=== PATIENT | male | born 1945 | race Caucasian/White ===

== ENCOUNTER 2017-08-30 12:30 | Inpatient (IN) ==
--- NOTE | 2017-08-30 12:40 | Emergency Department Report ---
Weakness HPI - General Stated complaint: weakness Time Seen by Provider: 08/30/17 12:40 - Related Data Home Medications Medication Instructions Recorded Confirmed Calcium Carbonate 650 mg PO BID #0 01/20/12 08/11/17 Cholecalciferol (Vitamin D) 3,000 unit PO DAILY #0 01/20/12 08/11/17 [place] Carbonate 600 mg PO HS #0 01/20/12 08/11/17 Multivitamins (Multivitamin) 1 tab PO DAILY #0 01/20/12 08/11/17 Quetiapine Fumarate 200 mg PO HS #0 01/20/12 08/11/17 Sennosides [Senokot] 2 tab PO BID #0 01/20/12 08/11/17 Trazodone HCl 150 mg PO HS #0 01/20/12 08/11/17 Ziprasidone HCl [Geodon] 40 mg PO BID #0 01/20/12 08/11/17 Fish Oil/[place]-3 Fatty Acids (Fish 4 cap PO DAILY #0 12/15/16 08/11/17 Oil 1,000 Mg Capsule) Previous Rx's Medication Instructions Recorded Norvasc (amlodipine) 10 mg tablet 10 mg PO DAILY #90 tab 03/19/17 hydrochlorothiazide 25 mg tablet 25 mg PO DAILY #30 tab 07/08/17 Allergies Allergy/AdvReac Type Severity Reaction Status Date / Time Penicillins Allergy Severe ANAPHYLACTIC Verified 02/10/17 14:46 SHOCK oxycodone Allergy Unknown STROKE Verified 02/10/17 14:46 Sulfa (Sulfonamide Allergy Unknown Verified 02/10/17 14:46 Antibiotics) Tetanus Toxoid,Fluid Allergy Unknown Uncoded 02/10/17 14:46 [facility] Medical History Migraine headache (Chronic Medical) Peripheral artery disease (Chronic Medical) Surgical History: stent in leg 2003. lung fluid removal x3 2007. r ankle fracture repair x 3 2009. stent in left groin area 1999 for peripheral artery disease. lung sugery x 3 Family History: Family History Father Stroke Mother Stroke Hypertension Diabetes mellitus Disposition Prescriptions: No Action Calcium Carbonate 650 mg PO BID #0 Ziprasidone HCl [Geodon] 40 mg PO BID #0 [place] Carbonate 600 mg PO HS #0 Sennosides [Senokot] 2 tab PO BID #0 Cholecalciferol (Vitamin D) 3,000 unit PO DAILY #0 Multivitamins (Multivitamin) 1 tab PO DAILY #0 Quetiapine Fumarate 200 mg PO HS #0 Trazodone HCl 150 mg PO HS #0 Fish Oil/[place]-3 Fatty Acids (Fish Oil 1,000 Mg Capsule) 4 cap PO DAILY #0 Norvasc (amlodipine) 10 mg tablet 10 mg PO DAILY #90 tab hydrochlorothiazide 25 mg tablet 25 mg PO DAILY #30 tab Referrals: Ernst Pinto MD [Primary Care Provider] -
--- OUTSIDE RECORDS SUMMARY | 2017-08-30 12:47 | External Medical Summary | Continuity of Care Document ---
:[address] [facility] Allergies Active Description Code Type Severity Reaction Onset Reported/ Identified Relationship Clinical to Patient Status Yes oxyCODONE NKMA N/A N/A 11/01/2013 Yes penicillin NKMA Medium unknown 11/01/2013 Yes sulfamethoxa NKMA Medium unknown 11/01/2013 zole Yes tetanus NKMA N/A N/A 08/29/2015 toxoid Medications Medication Packaging Start Date Stop Date Route Dosage Sig 05/14/2017 phenol See topical([place] [facility] [place] [facility], Apply Colorless 2x a day topical liquid) to area., 30 mL, 0 Refill(s) Problems Date Dx Attending Type Code Diagnosis Diagnosed By Coded 11/21/2015 Bj Cordoba Final L84 Corns and callosities 11/21/2015 Bj Cordoba Final M20.41 Other hammer toe(s) (acquired), right foot 11/21/2015 Bj Cordoba Final M21.6X1 Other acquired deformities of right foot 12/19/2015 Bj Cordoba Final 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 12/19/2015 Bj Cordoba Final M20.41 Other hammer toe(s) (acquired), right foot 01/16/2016 Bj Cordoba Final 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 01/16/2016 Bj Cordoba Final M20.41 Other hammer toe(s) (acquired), right foot 01/16/2016 Bj Cordoba Final B35.1 Tinea unguium 02/13/2016 Bj Cordoba Final 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 02/13/2016 Bj Cordoba Final M20.41 Other hammer toe(s) (acquired), right foot 02/13/2016 Bj Cordoba Final M21.6X1 Other acquired deformities of right foot 03/19/2016 Bj Cordoba Final 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 04/23/2016 Bj Cordoba Final 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 05/25/2016 Bj Cordoba Final 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 06/15/2016 Bj Cordoba Final M20.41 Other hammer toe(s) (acquired), right foot 06/15/2016 Bj Cordoba Final M21.6X1 Other acquired deformities of right foot 07/20/2016 Bj Cordoba Final 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 07/20/2016 Bj Cordoba Final M20.41 Other hammer toe(s) (acquired), right foot 07/20/2016 Bj Cordoba Final M21.6X1 Other acquired deformities of right foot 07/20/2016 Bj Cordoba Final B35.1 Tinea unguium 07/20/2016 Bj Cordoba Final R26.2 Difficulty in walking, not elsewhere classified 05/14/2017 Bj Cordoba Final M79.674 Pain in right toe(s) 05/14/2017 Bj Cordoba Final L60.3 Nail dystrophy 05/14/2017 Bj Cordoba Final L84 Corns and callosities Procedures Code Description [place] [address] Paring or 11/21/2015 cutting of benign hyperkeratotic lesion (eg, corn or callus); 2 to 4 lesions 35262 Office or 11/21/2015 other outpatient visit for the evaluation and management of an established patient, which requires at least 2 of these 3 celis components: An expanded problem focused history; An expanded prob 75316 Paring or 12/19/2015 cutting of benign hyperkeratotic lesion (eg, corn or callus); 2 to 4 lesions 13857 Office or 12/19/2015 other outpatient visit for the evaluation and management of an established patient, which requires at least 2 of these 3 celis components: An expanded problem focused history; An expanded prob 36824 Paring or 01/16/2016 cutting of benign hyperkeratotic lesion (eg, corn or callus); 2 to 4 lesions 97084 Debridement of 01/16/2016 nail(s) by any method(s); 6 or more 06221 Office or 01/16/2016 other outpatient visit for the evaluation and management of an established patient, which requires at least 2 of these 3 celis components: An expanded problem focused history; An expanded prob 73438 Paring or 02/13/2016 cutting of benign hyperkeratotic lesion (eg, corn or callus); 2 to 4 lesions 08484 Office or 02/13/2016 other outpatient visit for the evaluation and management of an established patient, which requires at least 2 of these 3 celis components: An expanded problem focused history; An expanded prob 40630 Paring or 03/19/2016 cutting of benign hyperkeratotic lesion (eg, corn or callus); 2 to 4 lesions 75779 Paring or 04/23/2016 cutting of benign hyperkeratotic lesion (eg, corn or callus); 2 to 4 lesions 28962 Office or 06/15/2016 other outpatient visit for the evaluation and management of an established patient, which requires at least 2 of these 3 celis components: An expanded problem focused history; An expanded prob 63016 Paring or 07/20/2016 cutting of benign hyperkeratotic lesion (eg, corn or callus); 2 to 4 lesions 72529 Debridement of 07/20/2016 nail(s) by any method(s); 6 or more 91160 Excision of 05/14/2017 nail and nail matrix, partial or complete (eg, ingrown or deformed nail), for permanent removal; 62399 Office or 05/14/2017 other outpatient visit for the evaluation and management of an established patient, which requires at least 2 of these 3 celis components: An expanded problem focused history; An expanded prob Results There is no data. Encounters ACCT No. Visit Discharge Status Pt. Type Provider Facility Loc./Unit Complaint Date/Time [id number] 02/09/2012 02/09/2012 CLS Outpatient Raul Olivera MDOPRA 55 14:55:00 23:59:59 [facility] [id number] 09/25/2013 09/25/2013 CLS Outpatient 15:00:00 23:59:59 [id number] 05/14/2017 05/14/2017 DIS Outpatient Adalid [facility] NPC RT 48 14:14:00 23:59:00 [facility] REMOVAL OF TOENAILS [id number] 07/20/2016 07/20/2016 DIS Outpatient Adalid, [facility] Callus 50 10:21:00 23:59:00 [facility] [id number] 06/15/2016 06/15/2016 DIS Outpatient Adalid, [facility] LAWRENCE RENEE 83 10:11:00 23:59:00 Bjrenny Basilio CALLOUS Clinic [id number] 04/23/2016 04/23/2016 DIS Outpatient Adalid, [facility] rck renee 95 10:24:00 23:59:00 Bjrenny Avilai feet Clinic callus [id number] 03/19/2016 03/19/2016 DIS Outpatient Adalid, [facility] Bilateral 35 09:58:00 [facility]59[facility] [id number] 02/13/2016 02/13/2016 DIS Outpatient Adalid, [facility] TCPA 30 09:36:00 23:59:00 Bj Basilio follow up Clinic callus [id number] 01/16/2016 01/16/2016 DIS Outpatient Adalid, [facility] Bilateral 88 08:41:00 23:59:00 Bjrenny Basilio feet Clinic callus recheck [id number] 12/19/2015 12/19/2015 DIS Outpatient Adalid, [facility] follow up 00 10:16:00 23:59:00 Bj Chetna bilateral Clinic feet lesions [id number] 11/21/2015 11/21/2015 DIS Outpatient Adalid, [facility] Callus 70 10:29:00 23:59:00 Bj Avilai Clinic [id number] 10/24/2015 10/24/2015 DIS Outpatient Adalid, [facility] Calllus 68 08:04:00 23:59:00 Bj [facility] Clinic [id number] 08/29/2015 08/29/2015 DIS Outpatient Adalid, [facility] callus 27 08:01:00 23:59:00 Bjrenny Avilai removal rt Clinic foot [id number] 05/25/2014 05/25/2014 DIS Outpatient Adalid, [facility] E21 Po NAIL TRIM 10 14:58:00 23:59:00 Bj Basilio Clinic [id number] 05/15/2017 Document 1727 05:17:27 Registrati on [id number] 10/01/2014 Document 50 14:13:00 Registrati on
--- OUTSIDE RECORDS SUMMARY | 2017-08-30 12:47 | External Medical Summary | Referral Summary ---
:1945 Author Organization [facility] Address [address] [place] [address] Care Team Providers Name Role Phone Ernst Pinto Primary Care Physician Encounter VC Date(s): 10/24/15 - 10/24/15 [facility] [address] [place] [address]- [place] Discharge Diagnosis: Acquired hammer toes of both feet Discharge Diagnosis: Pre-ulcerative calluses Discharge Disposition: 01-Home or Self Care Attending Physician: Bj Cordoba DPM Admitting Physician: Bj Cordoba DPM Referring Physician: Bj Cordoba DPM Vital Signs No data available for this section Problem List Condition Effective Dates Status Health Status Informant Alcoholism(Confirmed) Active ALLERGIES(Confirmed) Resolved Bipolar 1 disorder(Confirmed) Active DEPRESSION(Confirmed) Resolved HYPERTENSION(Confirmed) Resolved Seizures(Confirmed) Active Chicken pox(Confirmed) Active Allergies, Adverse Reactions, Alerts Substance Reaction Severity Status oxyCODONE Active penicillin unknown Medium Active sulfamethoxazole unknown Medium Active tetanus toxoid Active Medications amLODIPine Oral, Daily, 0 Refill(s) Start Date: 02/05/14 Status: OrderedAricept Oral, Bedtime (once a day), 0 Refill(s) Start Date: 02/05/14 Status: Orderedaspirin 0 Refill(s) Start Date: 02/05/14 Status: OrderedCalcium 600+D tabs, Oral, TID, 0 Refill(s) Start Date: 02/05/14 Status: OrderedCastellani [place] Colorless 0 Refill(s) Start Date: 02/05/14 Status: OrderedFish Oil Oral, 0 Refill(s) Start Date: 02/05/14 Status: OrderedGeodon 0 Refill(s) Start Date: 02/05/14 Status: Orderedhydrochlorothiazide Oral, Daily, 0 Refill(s) Start Date: 02/05/14 Status: OrderedIron-150 tabs, Oral, Daily, 0 Refill(s) Start Date: 02/05/14 Status: Orderedlithium carbonate Oral, TID, 0 Refill(s) Start Date: 02/05/14 Status: Orderedmultivitamin Daily, 0 Refill(s) Start Date: 02/05/14 Status: Orderedprazosin Oral, TID, 0 Refill(s) Start Date: 02/05/14 Status: OrderedSenokot S tabs, Oral, Bedtime (once a day), 0 Refill(s) Start Date: 02/05/14 Status: OrderedSEROquel Oral, 0 Refill(s) Start Date: 02/05/14 Status: OrderedtraZODone Oral, 0 Refill(s) Start Date: 02/05/14 Status: Ordered Results No data available for this section Immunizations Vaccine Date Refusal Reason influenza virus vaccine, inactivated 04/18/09 Procedures Procedure Date Related Diagnosis Body Site Paring or cutting of benign hyperkeratotic lesion 10/24/15 (eg, corn or callus); 2 to 4 lesions Appendectomy Arthrodesis of ankle (R), bone graft (R) Iliac Excision-partial med Malleolus (R) Ankle Incision AND drainage-Implant removal (R) Ankle Repair-(R) Ankle, remove implants Social History Social History Type Response Smoking Status Former smoker; Type: Cigarettes Assessment and Plan Extracted from: Title: Ambulatory Patient Education Author: Bj Cordoba DPM Date: 10/24/15 Musculoskeletal Hammer Toes Hammer toes is a condition in which one or more of your toes is permanently flexed. CAUSES This happens when a muscle imbalance or abnormal bone length makes your small toes buckle. This causes the toe joint to contract and the strong cord-like bands that attach muscles to the bones (tendons) in your toes to shorten. SIGNS AND SYMPTOMS Common symptoms of flexible hammer toes include: A buildup of skin cells (corns). Corns occur where beata bumps come in frequent contact with hard surfaces. For example, where your shoes press and rub. Irritation. Inflammation. Pain. Limited motion in your toes. DIAGNOSIS Hammer toes are diagnosed through a physical exam of your toes. During the exam , your health care provider may try to reproduce your symptoms by manipulating your foot. Often, X-ray exams are done to de termine the degree of deformity and to make sure that the cause is not a fracture. TREATMENT Hammer toes can be treated with corrective surgery. There are several types of surgical procedures that can treat hammer toes. The most common procedures include: ArthroplastyA portion of the joint is surgically removed and your toe is straightened. The gap fills in with fibrous tissue. This procedure helps treat pain and deformity and helps restore function. FusionCartilage between the two bones of the affected joint is taken out and the bones fuse together into one longer bone. This helps keep your toe stable and reduces pain but leaves your toe stiff, yet straight. ImplantationA portion of your bone is removed and replaced with an implant to restore motion. Flexor tendon transfersThis procedure repositions the tendons that curl the toes down (flexor tendons). This may be done to release the deforming force that causes your toe to buckle. Several of these procedures require fixing your toe with a pin that is visible at the tip of your toe. The pin keeps the toe straight during healing. Your health care provider will remove the pin usually within 48 weeks after the procedure. This information is not intended to replace advice given to you by your health care provider. Make sure you discuss any questions you have with your health care provider. Document Released: 06/18/2001 Document Revised: 06/26/2014 Document Reviewed: 02/26/2014 [facility] Patient Information 2015 [employer] [facility]. No follow up information was provided. Extracted from: Title: Office Visit Note Author: Bj Cordoba DPFaith Date: 10/24/15 Assessment/Plan Acquired hammer toes of both feet Stable. Pre-ulcerative calluses Paring of hyperkeratotic lesiontimes 4 bilateral feet wasperformed via #15 blade. No underlying ulceration noted. Follow upin one month.
--- OUTSIDE RECORDS SUMMARY | 2017-08-30 12:47 | External Medical Summary | Referral Summary ---
:1945 Author Organization [facility] Address [address] [place] [address] Care Team Providers Name Role Phone Ernst Pinto Primary Care Physician Encounter VC Date(s): 01/16/16 - 01/16/16 [facility] [address] [place] [address]- [place] Discharge Diagnosis: Acquired plantar porokeratosis Discharge Diagnosis: Acquired hammer toes of both feet Discharge Diagnosis: Pain due to onychomycosis of nail Discharge Disposition: 01-Home or Self Care Attending Physician: Bj Cordoba DPM Admitting Physician: Bj Cordoba DPM Vital Signs No data available for this section Problem List Condition Effective Dates Status Health Status Informant Acquired plantar Active porokeratosis(Confirmed) Alcoholism(Confirmed) Active ALLERGIES(Confirmed) Resolved Bipolar 1 disorder(Confirmed) [...] 0 Refill(s) Start Date: 02/05/14 Status: OrderedCastellani [place] Colorless 0 Refill(s) Start Date: 02/05/14 Status: [...] Procedures Procedure Date Related Diagnosis Body Site Debridement of nail(s) by any method(s); or 01/16/16 more Paring or cutting of benign hyperkeratotic lesion 01/16/16 (eg, corn or callus); 2 to 4 lesions Appendectomy Arthrodesis of ankle (R), bone graft (R) Iliac Excision-partial med Malleolus (R) Ankle Incision AND drainage-Implant removal (R) Ankle Repair-(R) Ankle, remove implants Social History Social History Type Response Smoking Status Former smoker; Type: Cigarettes Assessment and Plan Extracted from: Title: Ambulatory Patient Education Author: Bj Cordoba DPM Date: 01/16/16 Musculoskeletal Hammer Toes Hammer toes is a [...] 06/18/2001 Document Revised: 06/26/2014 Document Reviewed: 02/26/2014 [employer] Patient Information 2016 [employer] [facility]. No follow up information was provided. Extracted from: Title: Office Visit Note Author: Bj Cordoba DPM Date: 01/16/16 Assessment/Plan 1.Acquired plantar porokeratosis Paring of hyperkeratotic lesiontimes 4 of bilateral feet; right hallux, medial right arch, plantar right heel, and plantar left fifth metatarsal head wasperformed via #15 blade. No underlying ulceration noted. Follow upin one month. 2.Acquired hammer toes of both feet Stable. 3.Pain due to onychomycosis of nail ABN and consent forms were signed by the patient. Debridement of toenails,total of 10 was performed viamanual and mechanical means without any incidence. Follow up if condition worsens.
--- OUTSIDE RECORDS SUMMARY | 2017-08-30 12:47 | External Medical Summary | Referral Summary ---
:1945 Author Organization [facility] Address [address] [place] [address] Care Team Providers Name Role Phone Ernst Pinto Primary Care Physician Encounter VC Date(s): 02/13/16 - 02/13/16 [facility] [address] [place] [address] [place] Discharge Diagnosis: Acquired plantar porokeratosis Discharge Diagnosis: Pronation deformity of both feet Discharge Diagnosis: Acquired hammer toes of both feet Discharge Disposition: 01-Home or Self Care Attending [...] Daily, 0 Refill(s) Start Date: 02/05/14 Status: Orderedaspirin 0 Refill(s) Start Date: 02/05/14 Status: OrderedCalcium 600+D tabs, Oral, TID, 0 Refill(s) Start Date: 02/05/14 Status: OrderedCastellani [place] Colorless 0 Refill(s) Start Date: 02/05/14 Status: [...] Paring or cutting of benign hyperkeratotic lesion 02/13/16 (eg, corn or callus); 2 to 4 lesions Appendectomy Arthrodesis of ankle (R), bone graft (R) Iliac Excision-partial med Malleolus (R) Ankle Incision AND drainage-Implant removal (R) Ankle Repair-(R) Ankle, remove implants Social History Social History Type Response Smoking Status Former smoker; Type: Cigarettes Assessment and Plan Extracted from: Title: Office Visit Note Author: Bj Cordoba DPM Date: 02/13/16 Assessment/Plan 1.Acquired plantar porokeratosis Paring of hyperkeratotic lesiontimes4 bilateral feet; right hallux, medial arch right foot, plantar right heel, and plantar fifth metatarsal head left footperformed via #15 blade. No underlying ulceration noted. Patient was given callus pad today. Follow up in 5 weeks. 2.Acquired hammer toes of both feet Consideration is given to surgical intervention if condition worsens. 3.Pronation deformity of both feet Stable.
--- OUTSIDE RECORDS SUMMARY | 2017-08-30 12:47 | External Medical Summary | Referral Summary ---
:1945 Author Organization [facility] Address [address] [place] [address] Care Team Providers Name Role Phone Ernst Pinto Primary Care Physician Encounter VC Date(s): 03/19/16 - 03/19/16 [facility] [address] [place] [address]- [place] Discharge Diagnosis: Acquired plantar porokeratosis Discharge Disposition: 01-Home or Self Care Attending [...] 0 Refill(s) Start Date: 02/05/14 Status: OrderedCastellani [place] Colorless 0 Refill(s) Start Date: 02/05/14 Status: [...] Paring or cutting of benign hyperkeratotic lesion 03/19/16 (eg, corn or callus); 2 to 4 lesions Appendectomy Arthrodesis of ankle (R), bone graft (R) Iliac Excision-partial med Malleolus (R) Ankle Incision AND drainage-Implant removal (R) Ankle Repair-(R) Ankle, remove implants Social History Social History Type Response Smoking Status Former smoker; Type: Cigarettes Assessment and Plan Extracted from: Title: Office Visit Note Author: Bj Cordoba DPM Date: 03/19/16 Assessment/Plan 1.Acquired plantar porokeratosis Paring of hyperkeratotic lesiontimes4 bilateral feet; plantar right hallux ,plantar medial arch, plantar right heel,andfifth metatarsal head left footperformed via #15 blade. No underlying ulceration noted. Follow up in 5 weeks.
--- OUTSIDE RECORDS SUMMARY | 2017-08-30 12:47 | External Medical Summary | Referral Summary ---
:1945 Author Organization [facility] Address [address] [place] [address] Care Team Providers Name Role Phone Ernst Pinto Primary Care Physician Encounter VC Date(s): 06/15/16 - 06/15/16 [facility] [address] [place] [address]- [place] Discharge Diagnosis: Pronation deformity of both feet Discharge Diagnosis: Acquired plantar porokeratosis Discharge Diagnosis: [...] 0 Refill(s) Start Date: 02/05/14 Status: OrderedCastellani [place] Colorless 0 Refill(s) Start Date: 02/05/14 Status: [...] No data available for this section Immunizations Given and Recorded Vaccine Date Status Refusal Reason influenza virus vaccine, inactivated 04/18/09 Recorded Procedures Procedure Date Related Diagnosis Body Site Appendectomy Arthrodesis of ankle (R), bone graft (R) Iliac Excision-partial med Malleolus (R) Ankle Incision AND drainage-Implant removal (R) Ankle Repair-(R) Ankle, remove implants Social History Social History Type Response Smoking Status Former smoker; Type: Cigarettes Assessment and Plan Extracted from: Title: Office Visit Note Author: Bj Cordoba DPM Date: 06/15/16 Assessment/Plan 1.Pronation deformity of both feet Stable. 2.Acquired plantar porokeratosis Paring of hyperkeratotic lesiontimes 4 of bilateral feetwasperformed via #15 blade. No underlying ulceration noted. Follow up if condition worsens. 3.Acquired hammer toes of both feet Stable.
--- OUTSIDE RECORDS SUMMARY | 2017-08-30 12:47 | External Medical Summary | Referral Summary ---
:1945 Author Organization [facility] Address [address] [place] [address] Care Team Providers Name Role Phone Ernst Pinto Primary Care Physician Encounter VC Date(s): 07/20/16 - 07/20/16 [facility] [address] [place] [address]- [place] Discharge Diagnosis: Pain due to onychomycosis of nail Discharge Diagnosis: Difficulty walking Discharge Diagnosis: Pronation deformity of both feet [...] Resolved Bipolar 1 disorder(Confirmed) Active DEPRESSION(Confirmed) Resolved Difficulty walking(Confirmed) Active HYPERTENSION(Confirmed) Resolved Seizures(Confirmed) Active Chicken pox(Confirmed) Active Allergies, Adverse Reactions, Alerts Substance Reaction Severity Status oxyCODONE Active penicillin unknown Medium Active sulfamethoxazole unknown Medium Active tetanus toxoid Active Medications amLODIPine Oral, Daily, 0 Refill(s) Start Date: 02/05/14 Status: Orderedaspirin 0 Refill(s) Start Date: 02/05/14 Status: OrderedCalcium 600+D tabs, Oral, TID, 0 Refill(s) Start Date: 02/05/14 Status: OrderedCastellani [place] Colorless 0 Refill(s) Start Date: 02/05/14 Status: [...] Site Debridement of nail(s) by any method(s); 6 or 07/20/16 more Paring or cutting of benign hyperkeratotic lesion 07/20/16 (eg, corn or callus); 2 to 4 lesions Appendectomy Arthrodesis of ankle (R), bone graft (R) Iliac Excision-partial med Malleolus (R) Ankle Incision AND drainage-Implant removal (R) Ankle Repair-(R) Ankle, remove implants Social History Social History Type Response Smoking Status Former smoker; Type: Cigarettes Assessment and Plan Extracted from: Title: Office Visit Note Author: Bj Cordoba DPM Date: 07/20/16 Assessment/Plan 1.Pain due to onychomycosis of nail 2.Difficulty walking ABN and consent forms were signed by the patient. Debridement of toenails,total of 10 was performed viamanual and mechanical means without any incidence. Follow up if condition worsens. 3.Acquired plantar porokeratosis Paring of hyperkeratotic lesiontimes f4 of bilateral feet; plantar medial right halluxof rightfoot, medial archof right foot,plantarright heel, andplantar fifth metatarsal head left foot wasperformed via #15 blade. No underlying ulceration noted. Follow up if condition worsens. 4.Acquired hammer toes of both feet Stable. 5.Pronation deformity of both feet Stable.
--- OUTSIDE RECORDS SUMMARY | 2017-08-30 12:47 | External Medical Summary | Referral Summary ---
:1945 Author Organization [facility] Address [address] [place] [address] Care Team Providers Name Role Phone Ernst Pinto Primary Care Physician Encounter VC Date(s): 11/21/15 - 11/21/15 [facility] [address] [place] [address]- [place] Discharge Diagnosis: Acquired hammer toes of both feet Discharge Diagnosis: Pre-ulcerative calluses Discharge Diagnosis: Pronation deformity of both feet Discharge Disposition: 01-Home or [...] 0 Refill(s) Start Date: 02/05/14 Status: OrderedCastellani [place] Colorless 0 Refill(s) Start Date: 02/05/14 Status: [...] Paring or cutting of benign hyperkeratotic lesion 11/21/15 (eg, corn or callus); 2 to 4 lesions Appendectomy Arthrodesis of ankle (R), bone graft (R) Iliac Excision-partial med Malleolus (R) Ankle Incision AND drainage-Implant removal (R) Ankle Repair-(R) Ankle, remove implants Social History Social History Type Response Smoking Status Former smoker; Type: Cigarettes Assessment and Plan Extracted from: Title: Office Visit Note Author: Bj Cordoba DPFaith Date: 11/21/15 Assessment/Plan 1.Pronation deformity of both feet Recommended anti-pronation inserts from [employer]. 2.Acquired hammer toes of both feet Stable. 3.Pre-ulcerative calluses Paring of hyperkeratotic lesiontimes4; right hallux, plantar medial arch, and plantar right heelandplantar fifth metatarsal headwasperformed via #15 blade. No underlying ulceration noted. Follow up in 1 month.
--- OUTSIDE RECORDS SUMMARY | 2017-08-30 12:47 | External Medical Summary | Referral Summary ---
:1945 Author Organization [facility] Address [address] [place] [address] Care Team Providers Name Role Phone Ernst Pinto Primary Care Physician Encounter VC Date(s): 08/29/15 - 08/29/15 [facility] [address] [place] [address] [place] Discharge Diagnosis: Pre-ulcerative calluses Discharge Diagnosis: Pain due to onychomycosis of [...] 0 Refill(s) Start Date: 02/05/14 Status: OrderedCastellani [place] Colorless 0 Refill(s) Start Date: 02/05/14 Status: [...] Paring or cutting of benign hyperkeratotic lesion 08/29/15 (eg, corn or callus); 2 to 4 lesions Appendectomy Arthrodesis of ankle (R), bone graft (R) Iliac Excision-partial med Malleolus (R) Ankle Incision AND drainage-Implant removal (R) Ankle Repair-(R) Ankle, remove implants Social History Social History Type Response Smoking Status Former smoker; Type: Cigarettes Assessment and Plan Extracted from: Title: Office Visit Note Author: Bj Cordoba DPFaith Date: 08/29/15 Assessment/Plan Pain due to onychomycosis of nail Patient goes to a differentplace for toenail care. Pre-ulcerative calluses Paring of hyperkeratotic lesiontimes 3 of plantar right foot and 1 ofplantar left foot wasperformed via #15 blade. No underlying ulceration noted. Follow up in 2 months
--- OUTSIDE RECORDS SUMMARY | 2017-08-30 12:47 | External Medical Summary | Referral Summary ---
:1945 Author Organization [facility] Address [address] [place] [address] Care Team Providers Name Role Phone Ernst Pinto Primary Care Physician Encounter VC Date(s): 11/15/14 - 11/15/14 [facility] [address] [place] [address] [place] Discharge Disposition: 01-Home or Self Care Attending Physician: Stiven Olivera MD Admitting Physician: Stiven Olivera MD Vital Signs No data available for this section Problem List Condition Effective Dates Status Health Status Informant Alcoholism(Confirmed) Active ALLERGIES(Confirmed) Resolved Bipolar 1 disorder(Confirmed) Active DEPRESSION(Confirmed) Resolved HYPERTENSION(Confirmed) Resolved Seizures(Confirmed) Active Chicken pox(Confirmed) Active Allergies, Adverse Reactions, Alerts Substance Reaction Severity Status oxyCODONE Active penicillin unknown Medium Active sulfamethoxazole unknown Medium Active Medications amLODIPine Oral, Daily, 0 Refill(s) Start Date: 02/05/14 Status: OrderedAricept Oral, Bedtime (once a day), 0 Refill(s) Start Date: 02/05/14 Status: Orderedaspirin 0 Refill(s) Start Date: 02/05/14 Status: OrderedCalcium 600+D tabs, Oral, TID, 0 Refill(s) Start Date: 02/05/14 Status: OrderedCastellani [place] Colorless 0 Refill(s) Start Date: 02/05/14 Status: OrderedFish Oil Oral, 0 Refill(s) Start Date: 02/05/14 Status: OrderedFlonase sprays, Nasal, Daily, 0 Refill(s) Start Date: 02/05/14 Status: OrderedGeodon [...] Former smoker; Type: Cigarettes Assessment and Plan No data available for this section
--- OUTSIDE RECORDS SUMMARY | 2017-08-30 12:47 | External Medical Summary | Referral Summary ---
:1945 Author Organization [facility] Address [address] [place] [address] Care Team Providers Name Role Phone Ernst Pinto Primary Care Physician Encounter VC Date(s): 04/23/16 - 04/23/16 [facility] [address] [place] [address]- [place] Discharge Diagnosis: Acquired plantar [...] 0 Refill(s) Start Date: 02/05/14 Status: OrderedCastellani [place] Colorless 0 Refill(s) Start Date: 02/05/14 Status: [...] Site Paring or cutting of benign hyperkeratotic 04/23/16 lesion (eg, corn or callus); 2 to 4 lesions Appendectomy Arthrodesis of ankle (R), bone graft (R) Iliac Excision-partial med Malleolus (R) Ankle Incision AND drainage-Implant removal (R) Ankle Repair-(R) Ankle, remove implants Social History Social History Type Response Smoking Status Former smoker; Type: Cigarettes Assessment and Plan Extracted from: Title: Office Visit Note Author: Bj Cordoba DPM Date: 04/23/16 Assessment/Plan 1.Acquired plantar porokeratosis Paring of hyperkeratotic lesiontimes4 of bilateral feet; plantar right hallux, plantar right footmedial arch, plantar right heel, and fifth metatarsal head left footwasperformed via #15 blade. No underlying ulceration noted. Follow upin5 weeks.
--- NOTE | 2017-08-30 13:42 | CT Scan Report ---
Indication: expressive aphasia CT head/brain wo con: Comparison: None Technique: Nonenhanced axial images with brain and bone window utilizing dose reduction imaging technology Findings: Patient shows some diffuse deep white matter changes and generalized atrophy but no hemorrhage, midline shift or mass noted. A few small lacunar insult are suggested most prominent in the mid basal ganglial region on the right. Bone window evaluation showed no acute bony findings. Patient has clear sinuses and mastoids. Impression: 1. Considerable atrophy and deep white matter changes without hemorrhage, midline shift, mass or bony skull fracture. 2. Findings called ordering ER clinician at 1:38 PM on 08/30/2017 .
[2017-08-30] MEDS ORDERED: NS 1,000 ML IV ONE (14:23)
--- NOTE | 2017-08-30 15:27 | XRay Report ---
Indication: left knee pain, fall, swelling XR knee LT 3V: Comparison: 08/09/2017 Technique: AP, lateral and sunrise view Findings: Patient shows inferior patellar dislocation with a large suprasellar joint effusion. No definitive fractures are seen. Degenerative changes are seen about the medial compartment where there is some mild narrowing. Impression: Patient shows an inferior dislocation of the patella with a large suprapatellar joint effusion which is new since previous exam. No acute fractures were seen. .
--- NOTE | 2017-08-30 15:29 | XRay Report ---
Indication: chest tightness XR chest 1V: Comparison: None Technique: Single portable upright chest Findings: Patient showed mild prominence of the heart size without central vascular congestion. Increased interstitial markings are seen bilaterally which is somewhat nonspecific. Findings could represent chronic interstitial lung disease versus some noncardiogenic edema. No pleural effusions are seen. No acute bony findings are seen. Impression: Heart size at the upper range of normal with increased interstitial and even some alveolar bilateral pulmonary density. Comparison studies if available would be quite helpful to better assess if this is acute pulmonary interstitial edema versus chronic interstitial lung changes. .
[2017-08-30 17:04] VITALS: BMI 23.5
--- NOTE | 2017-08-30 17:13 | Magnetic Resonance Report ---
Indication: possible quadriceps tendon rupture MR knee LT wo con: Comparison: None Technique: T1 and T2-weighted images about the knee Findings: Patient showed significant blood and/or fluid with loss of definition of the patellar tendon suggesting a rupture with foreshortening and significant blood and edema present. The rest of the knee joint showed inferior dislocation of the patella. No disruption of the anterior/ posterior cruciate was seen. The medial and lateral collateral ligaments seen intact although there is significant blood edema seen anteriorly. Impression: Rupture of the quadriceps tendon with foreshortening and blood and edema identified anterior to the knee joint with a large suprapatellar joint effusion. The femur and tibia showed no acute additional bony findings. The patella is low in its orientation and appears to be dislocated inferiorly. Findings were called to the ordering ER clinician when study provided. .
[2017-08-30] MEDS: D5-1/2NS with KCL 20mEq 1,000 ML IV SCH (17:26)
[2017-08-30] MEDS ORDERED: ENOXAPARIN 40 MG/0.4 ML INJECTION SQ SCH (18:30)
[2017-08-30] MEDS ORDERED: CLINDAMYCIN PB 600 MG/50 ML BAG IV ONE (20:18)
--- NOTE | 2017-08-30 20:54 | History and Physical ---
CHIEF COMPLAINT "I am having a stroke." HISTORY OF PRESENT ILLNESS Patient is a 72-year-old male who presented to [facility] ED today at my request because he believed he was having TIA symptoms on Wednesday and Wednesday which he described as slurred speech and unsteadiness. He fell on three different occasions. He was not able to find words to express his symptoms at that time. He was having difficulty speaking and coming up with words. That got better on Wednesday until this morning. He began to have similar symptoms. He called the office and we told him that he needed to come to the emergency room to be evaluated. In the emergency room he was evaluated by the emergency room physician. CT head was negative for stroke. X-ray of the left knee showed inferior patellar dislocation with a large suprasellar joint effusion which is new since a previous exam. No fracture was identified. The emergency room physician spoke with Dr. Jacobsen who recommended an MRI of the affected knee. The MRI was done and was reported as rupture of the quadriceps tendon with foreshortening, blood and edema anterior to the knee joint with a large suprapatellar joint effusion. The femur and tibia showed no acute additional bony findings. The patella is low in its orientation and appears to be dislocated inferiorly. REVIEW OF SYSTEMS Denies chest pain, orthopnea, PND, leg-swelling, hematochezia, melena. Denies symptoms suggestive of urinary tract infection. [employer] symptoms are reported in the HPI above. Denies hemoptysis, palpitations, diplopia, blurry vision, difficulty seeing. He thinks he is back to his baseline right now. The patient complained of weakness as well. ALLERGIES Penicillin, oxycodone, sulfa, tetanus toxoid. PAST MEDICAL HISTORY 1. Migraine headache. 2. Peripheral artery disease. 3. Chronic left knee pain. 4. Hypertension. 5. Bipolar disorder. 6. Insomnia. 7. Vitamin D deficiency. CURRENT MEDICATIONS 1. Vitamin D3 3000 IU p.o. daily. 2. Hydrochlorothiazide 25 mg one tablet p.o. daily. 3. [place] carbonate 600 mg one tablet at bedtime. 4. Multivitamin one tablet daily. 5. Norvasc 10 mg one tablet daily. 6. Isabel-3 fish oil 2000 mg one tablet daily. 7. Sennosides 17.2 mg p.o. b.i.d. 8. Seroquel 300 mg p.o. q.h.s. 9. Trazodone 150 mg p.o. q.h.s. 10. Ziprasidone 40 mg one tablet daily. PAST SURGICAL HISTORY 1. Stent in leg - 2003. 2. Lung fluid removal x 3 - 2006. 3. Right ankle fracture repair x 3 - 2009. 4. Stent in left groin area for peripheral vascular disease - 1999. FAMILY HISTORY Father from stroke. Mother from stroke - had hypertension and diabetes mellitus. PHYSICAL EXAM GENERAL: The patient looks comfortable. He does not appear to be in any acute distress. HEENT: Atraumatic. Throat is clear. NECK: Supple. No JVD or bruit. CHEST: Lungs are clear to auscultation bilaterally. No wheezing or rales. CARDIOVASCULAR: Regular rate and rhythm. No murmur, S3 or S4 gallop. ABDOMEN: Soft, nontender. No mass is palpable. EXTREMITIES: The patient does have rather impressive swelling of the anterior knee. Patella is not palpable at this time. There is evidence of an ecchymotic lesion at the left knee. NEUROLOGIC: Grossly intact. The patient is awake, alert and oriented x 3. He does not have any focal neurologic deficits. Cranial nerves II-XII are grossly intact. Sensory exam is adequate as is motor exam. DTRs were examined. LABORATORY WBC 15.9, hemoglobin 12.8, platelet count 563,000. Neutrophils 85%, lymphocytes 10%. Potassium 2.9, creatinine 1.0, glucose 137, calcium 10.3, AST 47, ALT 75. Troponin I less than 0.012. UA is negative. IMAGING CT head shows considerable atrophy and deep white matter changes with hemorrhage , mid shaft, mass or bony skull fracture. Chest x-ray shows heart size at upper range of normal with increased interstitial and even some alveolar bilateral pulmonary density. Left knee x-ray shows an inferior dislocation of the patella with a large suprapatellar joint effusion which is new since previous exam. No fracture was identified. MRI of the left knee shows rupture of the quadriceps tendon with foreshortening , blood and edema identified anterior to the knee joint with a large suprapatellar joint effusion. The femur and tibia showed no acute additional bony findings. The patella is low in its orientation and appears to be dislocated inferiorly. ASSESSMENT 1. Recurrent falls with weakness and gait abnormality as initial symptoms patient presented with. CT head did not show evidence of CVA. 2. Left knee injury manifested as rupture of the quadriceps tendon with significant edema identified anterior to the left knee with large suprapatellar joint effusion. 3. Hypokalemia. 4. Unsteady gait. 5. Leukocytosis, probably due to stress reaction. 6. Hypertension. Blood pressure is stable. 7. Bipolar disorder. 8. Chronic left knee pain. PLAN 1. The findings have been discussed by the emergency room physician with Dr. Jacobsen. Dr. Jacobsen agreed that patient will probably require surgery tomorrow. I have not spoken to Dr. Jacobsen myself yet. This is the information I have had from the emergency room physician. 2. I have already replaced potassium for this patient with 40 mEq potassium orally given. Potassium was checked an hour later or so and was 3.0 so it is moving up. Will discontinue normal saline and start patient on IV D5 1/2 NS with 20 mEq potassium. 3. Pain management will be directed by Dr. Jacobsen. 4. Will resume patient's home medications. In the meantime we need to check the patient's list to make sure there is not a toxicity affecting his gait these "last few days." MTDD
[2017-08-30] MEDS ORDERED: LITHIUM CARBONATE 600 MG PO SCH (21:00)
[2017-08-30] MEDS ORDERED: QUETIAPINE FUMARATE 300 MG PO SCH (21:00)
[2017-08-30] MEDS ORDERED: LITHIUM CARBONATE 300 MG CAPSULE PO SCH (22:38)
[2017-08-30] MEDS: SENNOSIDES 8.6 MG TABLET PO SCH (22:41)
[2017-08-30] MEDS: TRAZODONE 50 MG TABLET PO SCH (22:41)
[2017-08-30] MEDS: QUETIAPINE 100 MG TABLET PO SCH (22:42)
[2017-08-31] MEDS: D5-1/2NS with KCL 20mEq 1,000 ML IV SCH (06:39)
[2017-08-31] MEDS ORDERED: MORPHINE SULFATE 10 MG SYRINGE IV PRN (07:21)
--- NOTE | 2017-08-31 07:40 | Orthopedic Consult Note ---
Orthopedic Consultation HPI - Consultation Info Consult Date: 08/31/17 Attending Physician: Ernst Pinto MD attending surgeon: Wilfredo Jacobsen MD Consult Reason: other - History of Present Illness Dakota Borden is a 72 year old male with chief complaint of left knee pain. He presented to [facility] ER yesterday on the advice of his PCP, Dr. Pinto, for concern about possible TIA. CT of his head was negative for acute intracranial issue. He also complained of left knee pain. X-rays were taken which showed a large effusion and an "inferior patellar dislocation". Dr. Jacobsen was contacted and recommended an MRI which revealed a quadriceps tendon rupture. Dakota indicates he has left knee pain today. He does not know exactly what happened. He has fallen multiple times in the recent days. 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 He notes during a recent lifting session he felt a pop in his left knee. Thereafter he was only able to walk with a walker. He denies any peripenial paraesthesias, calf pain, shortness of breath or chest pain. Dr. Pinto has admitted him and Dr. Jacobsen is planning surgery 09/01/17. His K is 3.3 after supplement and Hgb is 10.7. Chronic diagnoses include Bipolar disorder, PVD, Review of Systems - Constitutional Constitutional: Absent: chills, headache(s) - EENT Eyes: Absent: change in vision Ears, nose, mouth, throat: Absent: head injury - Cardiovascular Cardiovascular: Absent: chest pain Vascular: Absent: pallor of an extermity - Respiratory Respiratory: Present: cough. Absent: dyspnea - Gastrointestinal Gastrointestinal: Absent: abdominal pain - Musculoskeletal Musculoskeletal: Present: as per HPI, joint swelling, limited range of motion, muscle weakness - Integumentary/Breasts Integumentary: Absent: wounds - Neurological Neurological: Present: weakness, change in strength - Hematologic/Lymphatic Hematologic/Lymphatic: Absent: easy bleeding PFSH Patient Stated Medical History Other HEENT Yes: wears glasses Hypertension Yes Ulcer Yes Clinic Medical History Migraine headache (Chronic Medical) Peripheral artery disease (Chronic Medical) Surgical History: stent in leg 2003. lung fluid removal x3 2006. r ankle fracture repair x 3 2009. stent in left groin area 1999 for peripheral artery disease. lung sugery x 3 Family History: Family History Father Stroke Mother Stroke Hypertension Diabetes mellitus - Social History Smoking status: Former smoker Housing: house Household members: significant other Medications Home Medications Medication Instructions Recorded Confirmed Type Ziprasidone HCl [Geodon] 40 mg PO DAILY #0 01/20/12 08/30/17 History Amlodipine [Norvasc] 10 mg PO DAILY 08/30/17 08/30/17 History Calcium 2 tab PO DAILY 08/30/17 08/30/17 History Cholecalciferol (Vitamin D3) 3,000 unit PO DAILY 08/30/17 08/30/17 History [Vitamin D3] [place] Carbonate [[place] 600 mg PO HS 08/30/17 08/30/17 History Carbonate] Multivitamin [One Daily 1 tab PO DAILY 08/30/17 08/30/17 History Multivitamin] [place]-3/Dha/Epa/Fish Oil [Fish Oil 2,000 mg PO DAILY 08/30/17 08/30/17 History 1,000 mg Softgel] Quetiapine Fumarate [Quetiapine 300 mg PO HS 08/30/17 08/30/17 History Fumarate] Sennosides [Senokot] 17.2 mg PO BID 08/30/17 08/30/17 History Trazodone [Desyrel] 150 mg PO HS 08/30/17 08/30/17 History hydroCHLOROthiazide 25 mg PO DAILY 08/30/17 08/30/17 History [Hydrochlorothiazide] Allergies Allergy/AdvReac Type Severity Reaction Status Date / Time Penicillins Allergy Severe ANAPHYLACTIC Verified 08/30/17 17:03 SHOCK oxycodone Allergy Unknown STROKE Verified 08/30/17 17:03 Sulfa (Sulfonamide Allergy Unknown Verified 08/30/17 17:03 Antibiotics) Tetanus Toxoid,Fluid Allergy Unknown Uncoded 08/30/17 13:00 Orthopedic Exam Vital signs: Temperature 96.4 F L 08/30/17 23:28 Pulse Rate 82 08/31/17 04:45 Respiratory Rate 16 08/31/17 04:45 Blood Pressure 124/66 08/30/17 23:28 Pulse Oximetry 95 08/31/17 04:45 - Constitutional General Appearance: Present: alert, orientated x3, no acute distress - Respiratory Exam Present: non-labored - Cardiovascular Exam Present: pedal pulses intact Capillary Refill: < 2-3 Seconds - Abdominal Exam Absent: tenderness - Extremities Exam Present: pulses intact, joint swelling (Left knee 3 plus effusion). Absent: calf tenderness, extremity cold to touch Comments: cannot perform a straight leg raise. Palpable defect in the quad tendon at the superior patellar insertion. Intact skin. - Integumentary Exam Present: pink, warm, dry, intact - Lymphatic Lymphatic: Absent: lymphedema - Neurological Exam Present: intact to light touch, no deficits - Psychiatric Exam Present: alert, oriented, normal affect - Labs Result Diagrams: 08/31/17 03:57 08/31/17 03:57 Abnormal lab results 08/30/17 08/30/17 08/30/17 Range/Units 17:47 20:42 20:42 RBC (4.50-5.90) M/MM3 Hgb (13.5-17.5) GM/DL Hct (41-53) % Plt Count (130-400) T/MM3 Immature Gran % (Auto) (0.0-0.5) % Neut % (Auto) (33-66) % Lymph % (Auto) (23-45) % Abs Immat Gran (auto) (0.00-0.03) T/MM3 Potassium 3.0 L 3.3 L (3.6-5) MEQ/L Carbon Dioxide (22-30) MEQ/L Albumin (3.5-5.0) G/DL Albumin/Globulin Ratio (1.1-2.2) RATIO [place] 1.4 H (0.6-1.2) MMOL/L 08/31/17 08/31/17 Range/Units 03:57 03:57 RBC 3.59 L (4.50-5.90) M/MM3 Hgb 10.7 L D (13.5-17.5) GM/DL Hct 33.1 L D (41-53) % Plt Count 414 H (130-400) T/MM3 Immature Gran % (Auto) 0.7 H (0.0-0.5) % Neut % (Auto) 73.3 H (33-66) % Lymph % (Auto) 16.6 L (23-45) % Abs Immat Gran (auto) 0.06 H (0.00-0.03) T/MM3 Potassium 3.3 L (3.6-5) MEQ/L Carbon Dioxide 31 H (22-30) MEQ/L Albumin 2.8 L (3.5-5.0) G/DL Albumin/Globulin Ratio 0.8 L (1.1-2.2) RATIO [place] (0.6-1.2) MMOL/L H & H 08/31/17 Range/Units 03:57 Hgb 10.7 L D (13.5-17.5) GM/DL Hct 33.1 L D (41-53) % - Diagnostic results Knee x-ray: report reviewed, image reviewed Knee MRI: report reviewed, image reviewed Impression and Recommendation (1) Rupture of left quadriceps tendon Current visit: Yes Qualifiers: Encounter type: initial encounter Qualified Code(s): S76.112A - Strain of left quadriceps muscle, fascia and tendon, initial encounter Status: Acute This injury required surgery to allow patient to return to normal ambulation. Dr. Jacobsen is planning surgery 09/01/17. I spoke with Dakota and explained the antatomy, surgical procedure and time for recovery. 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 I emphasized the importance to be non weight bearing after the surgery for at least 6 weeks. He indicated he understood. Risks and benefits of the recommended procedure were discussed with the patient and/or patient's legal computer help desk representative. They include: infection, nerve damage, artery damage, stroke, TN, PE, DVT, ileus, continued pain, or risk that the injury may not heal despite surgery or that one may not regain full strength or ROM of the knee despite repair. There are also medical risks of anesthesia. Risks are not limited to the above mentioned alone. We will allow a normal diet today and he will be NPO after midnight. We will restart his Lovenox for DVT prevention Remain in the straight leg immobilizer. We will add PO and IV pain medications. Hospital Course Summary Disclaimer: The visit summary below is not to be considered part of the above Progress Note.
[2017-08-31] MEDS ORDERED: ACETAMINOPHEN 500 MG TABLET PO PRN (07:58)
[2017-08-31] MEDS: SENNOSIDES 8.6 MG TABLET PO SCH ×2 (09:19→20:13)
[2017-08-31] MEDS: MULTI-VITAMIN PLAIN TABLET PO SCH (09:20)
[2017-08-31] MEDS: ZIPRASIDONE 40 MG CAPSULE PO SCH (09:20)
[2017-08-31] MEDS: OMEGA-3 ACID ESTERS 1 GM CAPSULE PO SCH (09:21)
[2017-08-31] MEDS: SALINE FLUSH 10ml SYRINGE IVF PRN ×2 (09:21→17:50)
[2017-08-31] MEDS: FUROSEMIDE 40 MG/4 ML INJECTION IVP SCH ×2 (09:21→20:13)
[2017-08-31] MEDS: HYDROCODONE/APAP 5mg/325mg TABLET PO PRN (09:25)
[2017-08-31] MEDS: CALCIUM CARBONATE 500 MG TABLET PO SCH (09:25)
[2017-08-31] MEDS: AMLODIPINE 10 MG TABLET PO SCH (09:26)
--- NOTE | 2017-08-31 14:42 | Consultation ---
DATE OF CONSULTATION 08/31/[address] Pinto PATIENT'S CHIEF COMPLAINT Speech problem and left-sided weakness. HISTORY OF PRESENT ILLNESS Patient is a 72-year-old male with history of migraine, peripheral artery disease, chronic left knee pain, bipolar disorder and hypertension. The patient presented with recurrent episodes of slurred speech and unsteadiness. The patient had those symptoms on Wednesday initially and he got better the next day and then he had some new symptoms prior to this admission. The patient was admitted for possible TIA and stroke. He had a CT scan of the head in the ER and this was negative for stroke or bleed. The patient has been complaining of severe left knee pain. He had an MRI of his knee that showed rupture of the quadriceps tendon and which has limited his ability to move his knee very well. The patient is currently denying having any speech problem or difficulty finding words. He blamed that on being tired and fatigued. He continued to complain of his balance, coordination and leg weakness as a result of his left knee problem. The patient has not been taking any aspirin or any medication for anticoagulation. PHYSICAL EXAMINATION On physical examination, the patient was awake, alert, oriented x2. Pupils were round, reactive and equal. Extraocular muscles were intact. Visual field was full. Speech was fluent with normal articulation to words. Facial muscles showed some mild droopiness on the left compared to the right. His motor examination in the upper extremities were 5-/5. They were limited by shoulder problem bilaterally. In the lower extremities on the right it was 5/5, on the left it was 4+ to 5-/5 limited by knee pain in particular. Sensory examination was symmetrical for light touch and pinprick. Deep tendon reflexes were 2-/4. Plantar reflexes were equivocal bilaterally. Coordination for [id number] was slightly slow bilaterally. ASSESSMENT 1. Possible transient ischemic attack causing the patient to have some mild dysarthria and expressive aphasia. This can be associated with history of peripheral vascular disease and hypertension. The patient's weakness and coordination problem can be caused by the TIA. Other considerations include the left knee quadriceps tendon damages. PLAN 1. Obtain an MRI of the brain to rule out acute stroke or TIA effect on the brain. 2. Start patient on aspirin 81 mg p.o. q.d. 3. Obtain a carotid Doppler to evaluate for carotid stenosis. 4. Optimize treatment for hypertension and hyperlipidemia and keep LDL around 70. 5. Continue physical and occupational therapy as needed. 6. Follow up with orthopedics regarding his left knee problem. ASAF
[2017-08-31] MEDS ORDERED: INFLUENZA VAC High Dose 2017-18 (Fluzone HD*) (>=65yo) 0.5ml IM ONE (17:49)
--- NOTE | 2017-08-31 17:55 | Progress Note ---
DATE 08/31/2017 WADE Duncan is lying in bed in room #107 on the surgical floor when I saw him this morning. He does complain of some shortness of breath over the last week or so. His chest x-ray was not really normal per radiologist's interpretation on the day of admission. Chest x-ray shows increased interstitial and alveolar bilateral pulmonary density. PHYSICAL EXAM VITAL SIGNS: Fairly stable. GENERAL: The patient looks comfortable. NECK: Supple. CHEST: Lungs have crackles at the bases throughout. CARDIOVASCULAR: Regular rate and rhythm. ABDOMEN: Soft, nontender. EXTREMITIES: No significant edema. His knee is wrapped up and I did not look at it this morning. LABORATORY (this morning) Potassium 3.3, sodium 142, creatinine 0.9. Liver function tests were normal. ASSESSMENT 1. Recent fall with weakness and gait abnormality. 2. Possible TIA. 3. Left knee injury manifested by rupture of quadriceps tendon with significant edema identified anterior to left knee with large suprapatellar joint effusion. 4. Hypokalemia - improving. 5. Unsteady gait. 6. Leukocytosis, probably due to stress reaction. Repeated lab today shows WBC normal at 8.7. 7. Hypertension. Blood pressure appears to be stable. 8. Bipolar disorder. 9. Chronic left knee pain. 10. Dyspnea. Rule out pulmonary edema. PLAN Will try the patient on Lasix 40 mg IV b.i.d. and potassium 20 b.i.d. orally. Follow electrolytes in the morning. Echocardiogram may need to be done. Will have Dr. Barcenas evaluate the patient from a neurologic standpoint today. Dr. Jacobsen is planning on doing surgery on this patient tomorrow. [facility] CENTERCrist[facility]
[2017-08-31] MEDS ORDERED: ENOXAPARIN 40 MG/0.4 ML INJECTION SQ ONE (18:30)
[2017-08-31] MEDS: TRAZODONE 50 MG TABLET PO SCH (22:31)
[2017-08-31] MEDS: QUETIAPINE 100 MG TABLET PO SCH (22:31)
--- NOTE | 2017-09-01 08:30 | Magnetic Resonance Report ---
Indication: TIA PROCEDURE: MR head/brain wo con: Encounter: Initial Comparisons: Head CT dated August 30, 2017 Technique: Multiplanar, multisequence, MR imaging of the head without contrast was acquired. FINDINGS: Mild atrophy. The ventricles are proportional to atrophy. There are numerous areas of T2-weighted and T2 FLAIR weighted signal abnormality in the deep frontoparietal white matter that most likely represent small vessel ischemic disease. This is advanced for the patient's age. The brain stem, cerebellum, and cerebral hemispheres otherwise have a normal morphologic appearance as well as MR signal intensity on all pulse sequences. There are no areas of restricted diffusion on diffusion weighted imaging to suggest an acute infarct. There is no evidence of an intracranial mass lesion, intracranial hemorrhage, or hydrocephalus. The visualized portions of the orbits, calvarium, paranasal sinuses, and skull base demonstrate no significant abnormality. IMPRESSION: No acute intracranial hemorrhage or infarct. Advanced white matter disease for age probably related to chronic microvascular ischemia. .
[2017-09-01] MEDS: AMLODIPINE 10 MG TABLET PO SCH (08:55)
[2017-09-01] MEDS: FUROSEMIDE 40 MG/4 ML INJECTION IVP SCH ×2 (08:55→21:03)
[2017-09-01] MEDS: ZIPRASIDONE 40 MG CAPSULE PO SCH (08:55)
[2017-09-01] MEDS: CALCIUM CARBONATE 500 MG TABLET PO SCH (08:57)
[2017-09-01] MEDS: MULTI-VITAMIN PLAIN TABLET PO SCH (08:57)
[2017-09-01] MEDS: SENNOSIDES 8.6 MG TABLET PO SCH ×2 (08:58→21:04)
[2017-09-01] MEDS: OMEGA-3 ACID ESTERS 1 GM CAPSULE PO SCH (08:58)
[2017-09-01] MEDS: LR 1,000 ML IV SCH ×2 (09:29→12:53)
--- NOTE | 2017-09-01 10:57 | Anesthesia Preoperative Report ---
Anesthesia Preoperative Record - Date and Time Date: 09/01/17 Preoperative Diagnosis: Quadriceps tendon rupture NPO Since Date: 08/31/17 NPO Since Time: 00:00 Allergies/Adverse Reactions: Allergies Allergy/AdvReac Type Severity Reaction Status Date / Time Penicillins Allergy Severe ANAPHYLACTIC Verified 08/30/17 17:03 SHOCK oxycodone Allergy Unknown STROKE Verified 08/30/17 17:03 Sulfa (Sulfonamide Allergy Unknown Verified 08/30/17 17:03 Antibiotics) Tetanus Toxoid,Fluid Allergy Unknown Uncoded 08/30/17 13:00 - Vital Signs Vital Signs: Temperature 98.5 F 09/01/17 09:11 Pulse Rate 92 09/01/17 09:23 Respiratory Rate 20 09/01/17 09:11 Blood Pressure 133/83 09/01/17 09:11 Pulse Oximetry 95 09/01/17 09:11 Height and Weight: Height 1.74 m Weight 73.3 kg Body Mass Index 23.5 - Medications Inpatient Medications: Current Medications Acetaminophen (Tylenol) 500 mg PO BID PRN PRN Reason: Discomfort Hydrocodone Bitart/Acetaminophen ([place] 5/325) 1 tab PO Q4H PRN PRN Reason: Pain Last Admin: 08/31/17 09:25 Dose: 1 tab Amlodipine Besylate (Norvasc) 10 mg PO DAILY [facility] Last Admin: 09/01/17 08:55 Dose: 10 mg Calcium Carbonate (Calcium) 1,000 mg PO DAILY [facility] Last Admin: 09/01/17 08:57 Dose: Not Given Cholecalciferol (Vit. D-3) 3,000 unit PO DAILY [facility] Last Admin: 09/01/17 08:57 Dose: Not Given Furosemide (Lasix) 40 mg IVP Q12HR [facility] Last Admin: 09/01/17 08:55 Dose: 40 mg Hydrochlorothiazide (Hydrodiuril) 25 mg PO DAILY [facility] Last Admin: 09/01/17 08:55 Dose: 25 mg Lactated Ringer's (Lactated Ringers) 1,000 mls @ 50 mls/hr IV .Q20H [facility] Last Admin: 09/01/17 09:29 Dose: 50 mls/hr Darden Carbonate (Darden) 600 mg PO HS [facility] Last Admin: 08/30/17 22:41 Dose: 600 mg Morphine Sulfate (Morphine Sulfate Inj) 1 - 5 mg IV Q2H PRN PRN Reason: Pain Multivitamins (Theragran) 1 tab PO DAILY [facility] Last Admin: 09/01/17 08:57 Dose: Not Given Xgkli-1-[id number] Ethyl Esters (Lovaza) 2 gm PO DAILY [facility] Last Admin: 09/01/17 08:58 Dose: Not Given Potassium Chloride (K-Dur 20 Meq Tablet) 20 meq PO BIDWM [facility] Last Admin: 09/01/17 08:55 Dose: 20 meq Quetiapine Fumarate (Seroquel) 300 mg PO HS [facility] Last Admin: 08/31/17 22:31 Dose: 300 mg Senna (Senna Lax) 17.2 mg PO BID [facility] Last Admin: 09/01/17 08:58 Dose: Not Given Sodium Chloride (Iv Flush) 10 - 80 ml IVF PRN PRN PRN Reason: Flushing Last Admin: 08/31/17 17:50 Dose: 10 ml Trazodone HCl (Desyrel) 150 mg PO [facility] Last Admin: 08/31/17 22:31 Dose: 150 mg Ziprasidone (Geodon) 40 mg PO DAILY [facility] Last Admin: 09/01/17 08:55 Dose: 40 mg Home Medications: Home Medications Medication Instructions Recorded Confirmed Type Ziprasidone HCl [Geodon] 40 mg PO DAILY #0 01/20/12 08/30/17 History Amlodipine [Norvasc] 10 mg PO DAILY 08/30/17 08/30/17 History Calcium 2 tab PO DAILY 08/30/17 08/30/17 History Cholecalciferol (Vitamin D3) 3,000 unit PO DAILY 08/30/17 08/30/17 History [Vitamin D3] [place] Carbonate [Darden 600 mg PO 08/30/17 08/30/17 History Carbonate] Multivitamin [One Daily 1 tab PO DAILY 08/30/17 08/30/17 History Multivitamin] [place]-3/Dha/Epa/Fish Oil [Fish Oil 2,000 mg PO DAILY 08/30/17 08/30/17 History 1,000 mg Softgel] Quetiapine Fumarate [Quetiapine 300 mg PO 08/30/17 08/30/17 History Fumarate] Sennosides [Senokot] 17.2 mg PO BID 08/30/17 08/30/17 History Trazodone [Desyrel] 150 mg PO HS 08/30/17 08/30/17 History hydroCHLOROthiazide 25 mg PO DAILY 08/30/17 08/30/17 History [Hydrochlorothiazide] - Medical History Respiratory: Reports: Chronic Obstructive Pulmonary Disease (COPD) (long history of tobacco abuse, quit 2009) DENIES: Sleep Apnea Cardiovascular: Reports: Hypertension Gastrointestional: Reports: Ulcer - Surgical History HEENT Surgeries: Reports: Eye Surgery (CATARACTS RENEE.) GI Surgery/Treatments: Reports: Appendectomy, Other (SURGERY ON HEMORRAGING STOMACH ULCER) Musculoskeletal Surgery/Tx: Reports: Other (5 surgeries on his right ankle) Anesthesia Reactions: None Hx Family Anesthesia Reaction: No History of Motion Sickness: No - Social History Smoking Status: Former smoker Packs per day: 1 Pack-years: 40 Hx Chewing Tobacco Use: No Second Hand Exposure: No Substance Use Type: marijuana (frequently, last use 6 days ago) Alcohol Intake Frequency: does not drink - Pertinent Findings Laboratory: CBC and BMP 08/31/17 03:57 09/01/17 04:12 BMP 09/01/17 04:12 Sodium 144 Potassium 3.9 D Chloride 104 Carbon Dioxide 31 H BUN 16.0 Creatinine 0.8 Glucose 107 Calcium 9.3 EKG: Sinus Rhythm - Physical Exam Respiratory Exam: Present: rales, bilateral breath sounds equal Cardiovascular Exam: Present: regular rate and rhythm - Airway Assessment Mallampati Score: I TMD: 3 Fingerbreadths Neck Extension: fair Teeth: upper dentures Overall Assessment: no airway concerns - ASA ASA Score: 3 - Plan Anesthesia: General Inhalation Gases - Discussion Discussion: Discussed risks/options/alternatives of anesthesia and questions answered. Patient consents. Nursing pain assessment noted. Present for Discussion: family member Attestation Statement: Prior to the delivery of any anesthetic medication, I examined the patient, developed the plan, obtained the patient's consent and discussed the risk and benefits of the procedure with the patient/guardian. - Additional Information Seen by Anesthesia: Yes
[2017-09-01] MEDS ORDERED: BUPIVACAINE 0.25% (2.5mg/ml) PF 30ml INJECTION ONE (11:20)
[2017-09-01] MEDS ORDERED: FentaNYL 250 MCG/5 ML INJECTION ONE ×2 (11:21→12:21)
[2017-09-01] MEDS ORDERED: KETAMINE 500 MG/10 ML INJECTION ONE (11:21)
[2017-09-01] MEDS ORDERED: MIDAZOLAM 2mg/2ml INJECTION ONE (11:21)
[2017-09-01] MEDS ORDERED: PROPOFOL 500 MG/50 ML VIAL ONE (12:16)
[2017-09-01] MEDS ORDERED: PROPOFOL 20 ML ONE (13:17)
[2017-09-01] MEDS ORDERED: SUGAMMADEX 200mg/2ml INJECTION IVP ONE (13:19)
[2017-09-01] MEDS ORDERED: BUPIVACAINE 0.25% (2.5mg/ml) PF 30ml INJECTION ID ONE (13:32)
[2017-09-01] MEDS ORDERED: SENNA + DOCUSATE TABLET PO PRN (13:44)
[2017-09-01] MEDS ORDERED: ONDANSETRON 4 MG/2 ML INJECTION IVP PRN ×2 (13:44→13:52)
[2017-09-01] MEDS ORDERED: FentaNYL 100 MCG/2 ML INJECTION IVP PRN (13:52)
[2017-09-01] MEDS ORDERED: METOCLOPRAMIDE 10mg/2ml INJECTION IVP PRN (13:52)
--- NOTE | 2017-09-01 13:54 | Post Procedure Note ---
Date of Procedure: 09/01/17 Orthopedic Surgeon: Delmar Orthopedic Assisting Surgeon: Jon Chaney Anesthesia: General Inhalation Gases Procedure: Procedures Operation Date: 09/01/17 11:10 Actual Procedures p Left Quadriceps Tendon Repair(Left) - Wilfredo Jacobsen MD Condition: Stable Disposition: PACU
[2017-09-01] MEDS: NS 1,000 ML IV SCH (14:42)
[2017-09-01] MEDS: HYDROCODONE/APAP 5mg/325mg TABLET PO PRN ×2 (14:55→23:16)
[2017-09-01] MEDS: ASPIRIN *EC* 81 MG TABLET PO SCH (14:55)
--- NOTE | 2017-09-01 16:01 | Echocardiogram ---
DATE 08/31/[address] Ernst Pinto INDICATION Dyspnea TECHNICAL QUALITY: Technically good 2D, M-mode and Doppler echocardiographic images were submitted for interpretation. FINDINGS 1. CARDIAC CHAMBERS. All cardiac chamber measurements are normal. LV cavity size is reduced at 3.2 cm. Left atrium diameter of 3.8 cm falls in the normal range. RV size and contractility appear normal. Aortic root is 3.4 cm. 2. LV FUNCTION. Concentric LVH is present. I measured 13-14 mm in the posterior and septal wall. Wall motion analysis appears normal. LV systolic function appears preserved. Ejection fraction is estimated about 60%. Grade I/ IV diastolic dysfunction is suggested based on ?? inverted E/A ratio of 0.8. E/ E' 10.6 remains normal. 3. VALVES. Aortic valve exhibits mild sclerotic changes. Valve opening appears to not be restricted. Mitral valve exhibits mild sclerotic changes. Mild annular calcification is present. Valve excursion is ??normal. Tricuspid valve structure and motion appear normal, normal valve excursion. 4. DOPPLER. Peak flow velocity at the aortic valve level is 1.8 m/sec. Mean gradient of 8 mmHg. Calculated aortic valve area is 2.79 cm2. This is consistent with the absence of aortic stenosis. Very mild mitral regurgitation is present. Peak flow velocity at the LVOT level measures 1.55 m/sec with a normal morphology, early peak. Valsalva maneuver was not performed. The velocity is mildly increased. I don't appreciate any CHACE. Mild tricuspid regurgitation is present. Systolic PA pressure is estimated at 38-43 mmHg. Central venous pressure is estimated to be high normal range 5-10 mmHg based on a limited view of inferior vena cava. No evidence of intracardiac masses, thrombi, vegetations or shunts. IMPRESSION 1. Normal cardiac chamber size including the left atrium. 2. Concentric LVH with normal systolic function, EF estimated at 60%. 3. Mild diastolic dysfunction is suggested (abnormal relaxation pattern based on inverted E/A ratio). 4. Very mild mitral regurgitation and tricuspid regurgitation. 5. Systolic PA pressure is slightly elevated at 38-43 mmHg. 6. Mildly increased flow velocity both at the aortic and subaortic valve levels without evidence of stenosis at either site. MTDD
--- NOTE | 2017-09-01 16:28 | Operative Note ---
DATE OF OPERATION 09/01/2017 PREOPERATIVE DIAGNOSIS Left quadriceps tendon rupture, age indeterminate. POSTOPERATIVE DIAGNOSIS Left quadriceps tendon rupture, age indeterminate. PROCEDURE Open repair left quad tendon rupture. SURGEON Wilfredo Jacobsen MD [employer] OPERATOR Jon Chaney PA-C ANESTHESIA General. FLUIDS Please refer to Anesthesia chart. EBL Minimal. TOURNIQUET Please refer to Anesthesia chart. COMPLICATIONS None. CONDITION Stable in recovery room. INDICATIONS Mr. Borden is a 72-year-old gentleman with bipolar and other psychiatric disorder who presented to the ER on Wednesday with complaints of left knee swelling and weakness. Did not recall a specific injury. There was some ecchymosis already present as well as a large knee effusion and a palpable defect in the patient's quadriceps tendon. The patient was a poor historian and denied any notable history of trauma. He was admitted to his primary care provider, Dr. Pinto. Preoperative workup was obtained. MRI did confirm a complete quadriceps tendon rupture with retraction and distalization of the patella. It was elected to proceed with attempted open repair and consent was obtained. DESCRIPTION OF PROCEDURE The patient was identified in the preoperative holding area. The operative extremity was identified and appropriately marked. Risks, benefits, alternatives and potential complications were discussed and informed consent was obtained. The patient was taken to the operating theatre, placed supine on the operating table. Appropriate cardiorespiratory monitors were applied. General anesthesia was administered. A tourniquet was applied high on the left thigh while milking the quadriceps muscle as far distally as possible prior to applying this. The left lower extremity was then sterilely prepped and draped in the usual fashion. Surgical time-out was performed, confirmed with myself, the cardiopulmonary specialist and circulating nurse. Preoperative antibiotics had been given. The leg was elevated, again while milking the quadriceps muscle belly distal to the tourniquet and the tourniquet was inflated. A longitudinal anterior incision measuring approximately 12-13 cm was created. Electrocautery was used for hemostasis as indicated. Dissection was carried down through the fascia and marked effusion and fluid collection was encountered. This was evacuated from the joint. Continued dissection distally revealed the superior edge of the patella. The soft tissue was incised and dissected off the anterior aspect of the patella down to the level of the proximal portion of the patellar tendon. Retractors were placed. There was marked fibrous tissue diffusely which was removed both with fingers as well as pickups and rongeurs. We were able to identify the distal quadriceps tendon which was quite hypertrophic. There was extensive retinacular tearing both medially and laterally with ample and marked scar tissue forming. There was a small amount of fibrous tissue and tendon remnant remaining at the superior pole of the patella. The superior pole of the patella was debrided to a bleeding cortical surface in preparation for attempt at repair. We then identified the main portion of the quadriceps tendon and freshened this sharply using a 15-blade knife. It was noted that the tendon was quite retracted and the muscle was quite tight. We did ask for relaxation and paralysis of the patient to try to relax the muscles once we attempted to formally tie this down at the end. Three parallel drill holes were placed in the patella, one centrally, one medially and one laterally from proximal to distal. A Soonr suture passer was used to pass individual 2-0 Vicryl shuttling sutures for later passage. Following this a #5 Ethibond suture beginning centrally in the tendon was woven proximally in a Krackow type fashion , forming a locking stitch at the central portion of the tendon, than switching over to the lateral side of the tendon and coming back down to exit the end of the tendon. This was then repeated with a second #5 Ethibond suture but going up the central aspect and then coming back down medially. These suture limbs were then passed through the drill holes. For additional strength of repair we elected to place two Arthrex Q-FIX anchors in the proximal pole of the patella as well. These were drilled and placed and the anchors deployed. The first suture anchor had a single suture passed up the middle third of the tendon in between the Ethibond sutures that were previously placed and then coming back down. The other limb was passed simply through the suture and then we would use the anchor as a prashant to pull the tendon tissue down to bone. This was repeated then with a second anchor lying in the lateral third of the patella. At this time we were ready to attempt to reapproximate the tendon and the patella. The knee was placed in full extension. The sutures were passed and then simultaneously tensioned below the level of the inferior pole of the patella. At this time one of the medial Ethibond sutures broke, leaving a short tail. We opened a #2 Force Fiber suture and again wove it in a similar fashion as the previous Ethibond up the central portion of the tendon, coming back down the medial side and passed this suture back through the same drill holes. Following this, the distal sutures were tensioned and tied. Following this, the suture anchor sutures were tied by pulling the simple limb through the tissue acting as a prashant to pull the suture which had been passed through the tendon down to bone. These sutures were then tied arthroscopically and all suture tails were then cut. Finally, the last anchor sutures were tied in a similar fashion. At this time we evaluated the repair. We noted still retinacular defects both medially and laterally. The knee was quite tight. However, we elected to repair the retinaculum both medially and laterally with multiple interrupted [id number] #2 sutures and suture tails were cut. Prior to tying all sutures the knee was copiously irrigated multiple times. Once repair was obtained we allowed gravity to hang the knee to check the strength of the repair. There was no visible gapping of the repair but it was noted that the patient's knee was quite stiff, bending to only approximately 20 degrees of flexion. This was discussed previously with the patient as well, noting that given the unknown chronicity of the tendon that he may end up with a stiff knee. The wounds were then again copiously irrigated. Standard layered skin closure was then performed. Sterile dressings were applied followed by an IROM brace locked in extension. The tourniquet was deflated. The patient was awakened from anesthesia and taken to the recovery room in stable and satisfactory condition. ASAF
[2017-09-01] MEDS: CLINDAMYCIN PB 600 MG/50 ML BAG IV SCH ×2 (16:58→23:16)
[2017-09-01] MEDS ORDERED: FALL RISK - PHARMACY CONSULT MC ONE (17:04)
[2017-09-01] MEDS: TRAZODONE 50 MG TABLET PO SCH (21:03)
[2017-09-01] MEDS: QUETIAPINE 100 MG TABLET PO SCH (21:04)
[2017-09-01] MEDS: ENOXAPARIN 40 MG/0.4 ML INJECTION SQ SCH (21:04)
[2017-09-02] MEDS: NS 1,000 ML IV SCH ×3 (03:20→16:20)
[2017-09-02] MEDS: HYDROCODONE/APAP 5mg/325mg TABLET PO PRN ×2 (03:31→08:32)
[2017-09-02] MEDS: CLINDAMYCIN PB 600 MG/50 ML BAG IV SCH (04:55)
--- NOTE | 2017-09-02 08:12 | Orthopedic Progress Note ---
Date: Date: 09/02/17 Time: 807 Subjective/Severity of Illness: Dakota is up to a chair this AM. He states he has had some shortness of breath. O2 sats were taken and showed 96%. PCP is aware and also discussed with nurse. This is not a new symptom, and Dakota states "it is because of my marijuana use ". He denies chest pain or calf pain. His pain is controlled. Orthopedic Objective PO Vital signs: Temperature 97.5 F 09/02/17 07:49 Pulse Rate 99 09/02/17 07:49 Respiratory Rate 20 09/02/17 07:49 Blood Pressure 130/60 09/02/17 07:49 Pulse Oximetry 94 09/02/17 07:49 Height and Weight: Height 5 ft 8.5 in Weight 164 lb 10.965 oz Body Mass Index 23.5 - Constitutional General Appearance: Present: alert, orientated x3, no acute distress - Respiratory Exam Present: non-labored - Cardiovascular Exam Present: pedal pulses intact - Abdominal Exam Absent: tenderness - Extremities Exam Extremities: Present: pulses intact. Absent: calf tenderness - Surgical Site Incision: Mepilex dressing intact, dressing intact - Integumentary Exam Present: pink, warm, dry, intact - Lymphatic Lymphatic: Absent: lymphedema - Neurological Exam Present: intact to light touch, no deficits - Psychiatric Exam Present: alert, oriented, normal affect - Labs Result Diagrams: 09/02/17 04:07 09/02/17 04:07 Abnormal lab results 09/02/17 09/02/17 Range/Units 04:07 04:07 RBC 3.33 L (4.50-5.90) M/MM3 Hgb 10.1 L (13.5-17.5) GM/DL Hct 31.1 L (41-53) % Plt Count 486 H (130-400) T/MM3 MPV 9.0 L (9.4-12.4) UM3 Immature Gran % (Auto) 0.7 H (0.0-0.5) % Neut % (Auto) 76.0 H (33-66) % Lymph % (Auto) 13.4 L (23-45) % Neut # (Auto) 7.8 H (1.8-7.7) T/MM3 [place] # (Auto) 0.9 H (0-0.8) T/MM3 Abs Immat Gran (auto) 0.07 H (0.00-0.03) T/MM3 Potassium 3.5 L (3.6-5) MEQ/L H & H 08/31/17 09/02/17 Range/Units 03:57 04:07 Hgb 10.7 L D 10.1 L (13.5-17.5) GM/DL Hct 33.1 L D 31.1 L (41-53) % Orthopedic Assessment and Plan (1) Rupture of left quadriceps tendon Status: Acute Qualifiers: Encounter type: initial encounter Qualified Code(s): S76.112A - Strain of left quadriceps muscle, fascia and tendon, initial encounter Assessment and Plan: S/P Quad tendon repair on 09/01/[address] Jacobsen Non weight bearing Lovenox for DVT prevention straight leg immobilizer on at all times. Medical management per Dr. Pinto. - Anticoagulation Therapy Anticoagulation: Lovenox 40 mg SQ Daily x 30 days from day of surgery Hospital Course Summary Disclaimer: The visit summary below is not to be considered part of the above Progress Note.
[2017-09-02] MEDS: CALCIUM CARBONATE 500 MG TABLET PO SCH (08:31)
[2017-09-02] MEDS: FUROSEMIDE 40 MG TABLET PO SCH ×2 (08:32→20:42)
[2017-09-02] MEDS: AMLODIPINE 10 MG TABLET PO SCH (08:33)
[2017-09-02] MEDS: SENNOSIDES 8.6 MG TABLET PO SCH ×2 (08:33→20:42)
[2017-09-02] MEDS: ASPIRIN *EC* 81 MG TABLET PO SCH (08:33)
[2017-09-02] MEDS: OMEGA-3 ACID ESTERS 1 GM CAPSULE PO SCH (08:34)
[2017-09-02] MEDS: ZIPRASIDONE 40 MG CAPSULE PO SCH (08:35)
[2017-09-02] MEDS: MULTI-VITAMIN PLAIN TABLET PO SCH (08:35)
[2017-09-02] MEDS: ENOXAPARIN 40 MG/0.4 ML INJECTION SQ SCH (20:41)
[2017-09-02] MEDS: TRAZODONE 50 MG TABLET PO SCH (20:41)
[2017-09-02] MEDS: QUETIAPINE 100 MG TABLET PO SCH (20:42)
[2017-09-03] MEDS: ASPIRIN *EC* 81 MG TABLET PO SCH (09:04)
[2017-09-03] MEDS: CALCIUM CARBONATE 500 MG TABLET PO SCH (09:04)
[2017-09-03] MEDS: OMEGA-3 ACID ESTERS 1 GM CAPSULE PO SCH (09:04)
[2017-09-03] MEDS: MULTI-VITAMIN PLAIN TABLET PO SCH (09:05)
[2017-09-03] MEDS: FUROSEMIDE 40 MG TABLET PO SCH (09:05)
[2017-09-03] MEDS: ZIPRASIDONE 40 MG CAPSULE PO SCH (09:05)
[2017-09-03] MEDS: SENNOSIDES 8.6 MG TABLET PO SCH (09:05)
[2017-09-03] MEDS: AMLODIPINE 10 MG TABLET PO SCH (09:07)
--- NOTE | 2017-09-03 09:19 | Orthopedic Progress Note ---
Date: Date: 09/03/17 Time: 915 Subjective/Severity of Illness: Dakota has no new complaints today. He denies numbness, fever, chills or sweats. Review of nursing notes shows he tried to get out of bed unassisted last night and states he was a little confused. Dakota denies confusion today, but is a little disoriented on questioning. He denies chest pain or shortness of breath. IRU note indicates he will likely not qualify for a stay there. SNU is to be arranged. From an ortho standpoint it would be fine to transfer to SNU today if Dr. Pinto is in agreement. Orthopedic Objective PO Vital signs: Temperature 97.4 F 09/03/17 07:24 Pulse Rate 91 09/03/17 07:24 Respiratory Rate 16 09/03/17 07:24 Blood Pressure 123/76 09/03/17 07:24 Pulse Oximetry 92 09/03/17 07:24 Height and Weight: Height 5 ft 8.5 in Weight 154 lb 8.705 oz Body Mass Index 23.5 - Constitutional General Appearance: Present: alert, orientated x3, no acute distress - Respiratory Exam Present: non-labored - Cardiovascular Exam Present: pedal pulses intact - Abdominal Exam Absent: tenderness - Extremities Exam Extremities: Present: pulses intact. Absent: calf tenderness - Surgical Site Incision: Mepilex dressing intact, dressing intact - Integumentary Exam Present: pink, warm, dry, intact - Lymphatic Lymphatic: Absent: lymphedema - Neurological Exam Present: intact to light touch, no deficits - Psychiatric Exam Present: alert, oriented, normal affect - Labs Result Diagrams: 09/03/17 04:31 09/03/17 04:31 Abnormal lab results 09/03/17 09/03/17 Range/Units 04:31 04:31 RBC 3.78 L (4.50-5.90) M/MM3 Hgb 11.1 L (13.5-17.5) GM/DL Hct 35.1 L D (41-53) % Plt Count 530 H (130-400) T/MM3 MPV 8.8 L (9.4-12.4) UM3 Immature Gran % (Auto) 0.8 H (0.0-0.5) % Neut % (Auto) 72.2 H (33-66) % Lymph % (Auto) 15.2 L (23-45) % [place] % (Auto) 9.6 H (0-9.0) % Abs Immat Gran (auto) 0.07 H (0.00-0.03) T/MM3 Carbon Dioxide 33 H (22-30) MEQ/L Glucose 116 H (75-110) MG/DL H & H 08/31/17 09/02/17 09/03/17 Range/Units 03:57 04:07 04:31 Hgb 10.7 L D 10.1 L 11.1 L (13.5-17.5) GM/DL Hct 33.1 L D 31.1 L 35.1 L D (41-53) % Orthopedic Assessment and Plan (1) Rupture of left quadriceps tendon Status: Acute Qualifiers: Encounter type: initial encounter Qualified Code(s): S76.112A - Strain of left quadriceps muscle, fascia and tendon, initial encounter Assessment and Plan: S/P Quad tendon repair on 09/01/[address] Jacobsen Non weight bearing on left leg. 2 week follow up with Jon Welch for DVT prevention straight leg immobilizer on at all times. Medical management per Dr. Pinto. - Anticoagulation Therapy Anticoagulation: Lovenox 40 mg SQ Daily x 30 days from day of surgery Hospital Course Summary Disclaimer: The visit summary below is not to be considered part of the above Progress Note.
--- NOTE | 2017-09-03 10:11 | Extended Care Facility Orders ---
Admission Orders Admit to:: Half-Way Allergies/Adverse Reactions: Allergies Penicillins Allergy (Severe, Verified 08/30/17 17:03) ANAPHYLACTIC SHOCK oxycodone Allergy (Unknown, Verified 08/30/17 17:03) STROKE Sulfa (Sulfonamide Antibiotics) Allergy (Unknown, Verified 08/30/17 17:03) Tetanus Toxoid,Fluid Allergy (Unknown, Uncoded 08/30/17 13:00) Admitting Diagnosis: Quadriceps tendon rupture Admitting Physician: Ernst Pinto MD Attending Physician: Ernst Pinto MD Anticiapted Length of Stay: 30 days or less Rehab Potential: good Rehab Prognosis: good Diet: 09/01/17 Lunch Regular Diet [DIET] Diet Modifications: May use Facility Protocol or Standing Orders: Yes May have flu vaccine: Yes Evaluations/Treatment: PT, OT Half-Way Certification: I certify that SNF services are required to be given on an Inpatient basis because of the patients need for senior living care on a continuing basis for the condition(s) for which he/she received inpatient hospital services prior to his/her transfer to the SNF. SNF inpatient care is necessary for the following reasons - Additional Information In Event of Arrest: Start CPR,call 911,send patient to the ER Resident is Aware of Diagnosis: Yes Referrals: Jon Chaney PA [Physician Mortgage Lender] - 2 Weeks (call [phone] to arrange follow up)
--- NOTE | 2017-09-03 10:15 | XRay Report ---
Indication: dyspnea, f/u abnormal cxr PROCEDURE: XR chest 1V: Encounter: Initial Comparison: August 30, 2017 Findings: Interstitial prominence is slightly improved since the comparison study. No new or worsening airspace disease. No pneumothorax or pleural effusion. Heart size and mediastinal contours are stable. Severe degenerative change in the left shoulder with degenerative change and scoliosis in the spine. Impression: Decreasing interstitial prominence could represent improving pulmonary edema. .
[2017-09-03 11:32] VITALS: BP 129/76; PULSE 84; RESP 14; TEMP 97.7; O2SAT 93
--- NOTE | 2017-09-03 12:45 | Progress Note ---
DATE 09/02/2017 SUBJECTIVE Dakota doesn't have any complaint. He thinks his difficulty breathing is improving - "It's improved a lot." PHYSICAL EXAMINATION VITAL SIGNS: Blood pressure 130/60 with a pulse of 99, temperature 97.5, O2 sat 94% on room air. GENERAL: He looks comfortable. NECK: Supple. CHEST: Lungs sound essentially clear. CARDIOVASCULAR: Regular rate and rhythm. ABDOMEN: Soft. EXTREMITIES: Edema involving the left knee postsurgery for the rupture injury of his quadriceps. NEURO EXAM: Grossly intact. LABORATORY Potassium 3.5. ASSESSMENT 1. Recent fall, weakness and gait abnormality. 2. Possible TIA. 3. Left knee injury manifested by rupture of the quadriceps - patient status postsurgery. 4. Hypokalemia, treated and improved. 5. Unstable gait. 6. Leukocytosis, resolved. 7. Hypertension. Blood pressure is stable. 8. Bipolar disorder, quiescent. 9. Dyspnea, improving with Lasix. PLAN 1. Continue current care. 2. Continue physical therapy. 3. Follow up Dr. Jacobsen's recommendation as far as dismissal is concerned. ASAF
--- NOTE | 2017-09-03 14:34 | Progress Note ---
DATE 09/01/2017 This is a late dictation. The patient was seen on September 01, 2017 in the evening. SUBJECTIVE He doesn't have any complaint. He just had surgery several hours earlier. He seemed to be doing well post surgery. PHYSICAL EXAMINATION VITAL SIGNS: Blood pressure 108/63, pulse 86, O2 sat 96% on 1 liter of oxygen by nasal cannula. GENERAL: Patient looks comfortable. NECK: Supple. CHEST: Lungs show decreased breath sounds in the right lower lobe with some rales. CARDIOVASCULAR: Regular rate and rhythm. No murmur. ABDOMEN: Soft. EXTREMITIES: Postop swelling of left knee, left lower extremity. NEURO EXAM: Grossly intact. LABORATORY Potassium 3.9. ASSESSMENT 1. Recent fall with weakness and gait abnormality. 2. Left knee injury manifested by rupture of the quadriceps tendon. 3. Possible TIA. 4. Hypokalemia, treated. 5. Leukocytosis, resolved. 6. Hypertension, stable. 8. Bipolar disorder, quiescent. PLAN 1. Continue Lasix. 2. Continue pain management and continue care by Dr. Jacobsen. ASAF
--- NOTE | 2017-09-03 15:59 | Discharge Summary ---
FINAL DIAGNOSES 1. Left knee injury manifested by rupture of the quadriceps tendon with significant edema identified anterior to the left knee with large suprapatellar joint effusion. 2. Possible TIA. 3. Recent frequent falls with weakness and gait abnormality. 4. Unsteady gait. 5. Leukocytosis due to stress reaction to acute injury - resolved. 6. Hypertension. 7. Pulmonary congestion/edema. 8. Bipolar disorder. 9. Chronic left knee pain. 10. Dyspnea. 11. Hypokalemia - treated and resolved. CONSULTANTS 1. Dr. Wilfredo Jacobsen. 2. Dr. Mica Barcenas. PROCEDURES 09/01/2017 - Open repair left quadriceps tendon rupture under general anesthesia by Dr. Wilfredo Jacobsen. REASON FOR ADMISSION Patient is a 72-year-old male who presented to [facility] ED at my request. He described symptoms on Wednesday and Wednesday of slurred speech and unsteadiness. He fell on three occasions back to back. He was having difficulty finding words as part of his symptoms. He was having difficulty speaking and coming up with words. It got better on Wednesday morning and then symptoms began again. He called the office and we told him to come to the emergency room. He was evaluated there with a normal head CT. In addition, x-ray of the left knee showed inferior patellar dislocation with a very large suprapatellar joint effusion which was new since the previous exam. Dr. Jacobsen was consulted by the emergency room physician in order for MRI of the affected knee which showed a severe rupture of the quadriceps tendon with foreshortening and bony edema anterior to the joint effusion with a large suprapatellar joint effusion. For that reason the patient was admitted to [facility] for further evaluation and recommendations. On physical examination he looked comfortable by the time I saw him. He had pain involving the left knee. The left knee did show swelling at the anterior knee. Patella was not palpable at that time. The rest of his exam was unremarkable. LABORATORY WBC 15.9, hemoglobin 12.8. Creatinine 1.0, potassium 2.9. IMAGING CT head showed considerable atrophy and deep white matter changes without any hemorrhage, mass or bony skull fracture. Chest x-ray showed the heart size at upper range of normal with increased interstitial and even some alveolar bilateral pulmonary density. No old chest x -ray for comparison. Left knee x-ray and MRI results as per HPI. HOSPITAL COURSE The patient was admitted on an outpatient basis to the surgical unit at the request of Dr. Jacobsen. The patient was taken to surgery by Dr. Jacobsen on 09/01/2017 where the rupture of the quadriceps tendon was repaired by Dr. Jacobesn. Postoperatively he did well - no complications. His hypokalemia was treated. His pulmonary congestion was treated with Lasix and potassium. Actually, his breathing was better. He was having some shortness of breath a couple of weeks prior to this admission. An echocardiogram was done and was an essentially normal report with a normal ejection fraction of 60%. Maybe mild diastolic dysfunction. Followup chest x-ray is pending at time of dictation. The patient is medically stable now to be dismissed. He is receiving some physical therapy. He doesn't have anyone who can take off during the day. Therefore, the patient agreed to go to [facility] unit. He will be dismissed to a [facility] unit in [place] for a couple of weeks or so. DISCHARGE MEDICATIONS 1. Lasix 40 mg one tablet daily. 2. Hydrochlorothiazide 25 mg one tablet daily. 3. Potassium 20 mEq one tablet daily. 4. Seroquel 300 mg one tablet at bedtime. 5. Trazodone 100 mg one tablet at bedtime. 6. Geodon 40 mg one tablet daily. 7. Lovenox for DVT prophylaxis for a total of 30 days from day of surgery. FOLLOWUP Follow up with Dr. Pinto in seven to ten days. Follow up with CORN[facility] Rivera for Dr. Jacobsen two weeks from today. Their recommendation is non-weightbearing on the left leg. [facility]
--- NOTE | 2017-09-06 14:08 | Ultrasound Report ---
EXAM: US carotid doppler BI DATE: 08/31/2017 5:35 PM ENCOUNTER: Initial INDICATION: TIA COMPARISON: None available. TECHNIQUE: Real-time high resolution ultrasound evaluation was performed using torres-scale as well as spectral and color Doppler. FINDINGS: Moderate bilateral carotid atherosclerotic plaque noted. The carotid arteries remain grossly patent. The waveforms are unremarkable. Peak systolic and end-diastolic velocities (cm/sec) are listed below: RIGHT CAROTIDS: CCA: 105/17 ICA Prox: 131/30 ICA Mid: 140/13 ICA Dist: 75/16 ECA: 118/4 ICA/CCA Ratio: 1.3 Antegrade flow seen in the right vertebral artery. LEFT CAROTIDS: CCA: 86/16 ICA Prox: 169/33 ICA Mid: 157/29 ICA Dist: 84/19 ECA: 274/14 ICA/CCA Ratio: 1.8 Antegrade flow seen in the left vertebral artery. IMPRESSION: 1. Moderate bilateral carotid atherosclerotic plaque resulting in 50-69% stenosis of the left greater than right internal carotid arteries by duplex Doppler criteria. 2. Patent antegrade bilateral vertebral flow demonstrated. .
== END 2017-09-03 15:00 | DRG 501 ==
LOC: ED 12:30 → SRG 16:44
PROVIDERS: ADMIT Family Medicine; ATTEND Family Medicine